=== PATIENT | male | born 1985 | race Caucasian/White ===

== ENCOUNTER 2016-06-23 10:03 | Outpatient (RCR) | payer OTHER ==
[~2016-06-23 10:03] MED LIST: CHLO500T2 PO; CIPR500T4 PO; CYCL2DRO5 OS; DIAZ2TAB PO; ERYT3.5O8 OS; HYDROCODONE PO; KETO10TA PO; OXYC30TA80 PO
== END 2016-06-23 12:10 | disposition home or self-care (01) ==
PROVIDERS: ATTEND Surgery
DX: Z02.71 Encounter for disability determination (principal); M48.06 Spinal stenosis, lumbar region; M79.1 Myalgia; M51.36 Other intervertebral disc degeneration, lumbar region